=== PATIENT | female | born 1945 | race Caucasian/White ===

== ENCOUNTER 2017-07-02 12:08 | Emergency (ER) | payer MEDICARE, OTHER ==
[~2017-07-02] VITALS: Ht 157.5 cm; Wt 60.0 kg
[~2017-07-02 12:08] MED LIST: ATOR20TA38 PO; BENA10TA48 PO; CLOP75TA27 PO; CREON PO; ISOS30TA5 PO; METO-335 PO; RANI150C11 PO; RANO500T2 PO; RISE35TA3 PO; ZOLP5TAB PO
[2017-07-02 12:17] VITALS: Ht 157.5 cm; Wt 60.0 kg
[2017-07-02] MEDS ORDERED: HYDROCODONE/APAP (10/325) TAB PO ONE (13:30)
--- NOTE | 2017-07-02 14:09 | RADRPT ---
PROCEDURE: CT Lumbar Spine. CLINICAL INDICATION: Trauma. TECHNIQUE: Noncontrast CT of the lumbar spine was performed with multiplanar reformatted images gen erated from the axial acquired data. The administered radiation dose was CTDI vol = 24.93 mGy, DLP = 751.38 mGy-cm. One or more of the following dose reduction techniques were used: Automated exposur e control, Adjustment of the mA and/or kV according to patient size, or Use of iterative reconstruct ion technique. DICOM images are available. COMPARISON: There are no similar studies submitted for comparison. FINDINGS: There is normal lumbar lordosis. There is an acute / recent transverse fracture through the T11 vertebral body with moderate compress ion fracture. There is no significant retropulsion. There is normal alignment. There is no destructive osseous lesion. The discs are normal in height. T11-T12: There is a 2 mm central disk/osteophyte protrusion causing mild to moderate spinal canal s tenosis. There is moderate bilateral foraminal stenosis. T12-L1 : There is a 1 mm broad-based disc bulge without spinal canal or bilateral foraminal stenosis . L1-L2 : There is no disc herniation, spinal canal, or foraminal stenosis. L2-L3 : There is a 1 mm broad-based disc bulge and mild bilateral facet arthropathy without spinal c anal or bilateral foraminal stenosis. L3-L4 : There is a 2 mm broad-based disc bulge and mild bilateral facet arthropathy without spinal c anal or bilateral foraminal stenosis. L4-L5 : There is a 3 mm circumferential disc bulge and mild bilateral facet arthropathy ligamentum f lavum infolding causing mild to moderate spinal canal stenosis. There is no bilateral foraminal sten osis. L5-S1 : There is a 2 mm circumferential disc bulge without spinal canal stenosis. There is mild bila teral facet arthropathy with mild bilateral foraminal stenosis. The sacroiliac joints are intact. IMPRESSION: 1. Acute / recent T11 vertebral body compression fracture without retropulsion. 2. Mild multilevel degenerative changes as detailed above. Further findings as detailed above. RPTAT: HVF .Hubert Shahid MD, MD Date Time Electronically viewed and signed by .Hubert Shahid MD, on 07/02/2017 14:09 .F/
[2017-07-02] MEDS ORDERED: HYDR-902 PO (14:16)
--- NOTE | 2017-07-02 14:21 | ERD ---
ER Documentation Chief Complaint Chief Complaint BIB [facility] FOR BACK PAIN. S/P FALL YESTERDAY. HPI This is a 72-year-old female who is seen for a fall on an outside emergency room yesterday with a diagnosis of a fractured distal radius. When she got home she started complaining of back pain. The patient had apparently fallen to her buttocks but did not mention this pain to the ER doctor yesterday. Pain is located at the lower thoracic upper lumbar junction and is sharp and worse with movement. No numbness or weakness loss of bowel or bladder pain does not radiate she has no other complaints ROS All systems reviewed and are negative except as per history of present illness. Medications Home Meds Active Scripts Hydrocodone/Acetaminophen ([place] 10-325 Tablet) 1 Each Tablet, 1 TAB PO Q6H Y for PAIN, #20 TAB Prov:DOMINIC CHAVEZ DO 07/02/17 Reported Medications Lipase/Amylase/Protease* ([place] 10813*) 1 Cap Cap, 1 CAP PO SOMETIMES, CAP WITH MEALS 12/28/13 Zolpidem Tartrate* (Ambien*) 5 Mg Tablet, 5 MG PO HS Y for INSOMNIA, TAB 12/28/13 Risedronate* (Atelvia*) 35 Mg Tablet.dr, 35 MG PO EVERY Sunday12/28/13 Ranolazine* (Ranexa*) 500 Mg Tabsr, 500 MG PO BID, TAB 12/28/13 Atorvastatin Calcium* (Atorvastatin Calcium*) 20 Mg Tablet, 20 MG PO HS, TAB 12/28/13 Ranitidine Hcl (Ranitidine Hcl) 150 Mg Capsule, 150 MG PO HS, CAP 12/28/13 Metoprolol Succinate* (Toprol XL*) 25 Mg Tab.sr.24h, 25 MG PO QAM, TAB 12/28/13 Isosorbide Mononitrate* (Isosorbide Mononitrate*) 30 Mg Tab.er.24h, 30 MG PO QAM , TAB 12/28/13 Benazepril Hcl* (Benazepril Hcl*) 10 Mg Tablet, 10 MG PO DAILY, TAB 12/28/13 Clopidogrel Bisulfate (Clopidogrel) 75 Mg Tablet, 75 MG PO DAILY, TAB 12/28/13 Allergies Allergies: Coded Allergies: No Known Allergy (Unverified , 12/28/13) PMhx/Soc History of Surgery: Yes (2 stents in 2005) Anesthesia Reaction: No Hx Neurological Disorder: No Hx Respiratory Disorders: No Hx Cardiac Disorders: Yes (2 stents in 2005, htn, high cholesterol) Hx Psychiatric Problems: No Hx Miscellaneous Medical Probl: No Hx Alcohol Use: Yes (nightly) Hx Substance Use: No Hx Tobacco Use: No Smoking Status: Never smoker FmHx Family History: No coronary disease Physical Exam Vitals Vital Signs Date Time Temp Pulse Resp B/P Pulse Ox O2 Delivery O2 Flow Rate FiO2 07/02/17 12:36 80 167/95 96 Room Air 07/02/17 12:19 89 174/106 92 Room Air 07/02/17 12:17 97.5 87 16 176/106 99 Physical Exam Const: [Well-developed, well-nourished] Head: [Atraumatic, normocephalic] Eyes: [Normal Conjunctiva, PERRLA, EOMI, normal sclera, no nystagmus] ENT: [Normal External Ears, Nose and Mouth, moist mucus membranes.] Neck: [Full range of motion. No meningismus, no lymphadenopathy.] Resp: [Clear to auscultation bilaterally, no wheezing, rhonchi, rales] Cardio: [Regular rate and rhythm, no murmurs, S1 S2 present] Abd: [Soft, non tender x 4, non distended. Normal bowel sounds, no guarding or rebound, no pulsitile abdominal masses or bruits] Skin: [No petechiae or rashes, no ecchymosis , no maculopapular rash] Back: [Reproducible tenderness at the T12-L1 level] Ext: [No cyanosis, or edema, FROM x 4, normal inspection, neurovascularly intact x 4] Neur: [Awake and alert, STR 5/5 x 4, sensation intact x 4, no focal findings, cerebellum intact] Psych: [Normal Mood and Affect] Results 24 hrs Current Medications Medications (Trade) Dose Ordered Sig/Nona Route PRN Reason Start Time Stop Time Status Last Admin Dose Admin Acetaminophen/ Hydrocodone Bitart ([place] (10/325)) 1 tab ONCE ONCE PO 07/02/17 13:30 07/02/17 13:31 DC 07/02/17 13:30 Procedures/MDM PROCEDURE: CT Lumbar Spine. CLINICAL INDICATION: Trauma. TECHNIQUE: Noncontrast CT of the lumbar spine was performed with multiplanar reformatted images generated from the axial acquired data. The administered radiation dose was CTDI vol = 24.93 mGy, DLP = 751.38 mGy-cm. One or more of the following dose reduction techniques were used: Automated exposure control, Adjustment of the mA and/or kV according to patient size, or Use of iterative reconstruction technique. DICOM images are available. COMPARISON: There are no similar studies submitted for comparison. FINDINGS: There is normal lumbar lordosis. There is an acute / recent transverse fracture through the T11 vertebral body with moderate compression fracture. There is no significant retropulsion. There is normal alignment. There is no destructive osseous lesion. The discs are normal in height. T11-T12: There is a 2 mm central disk/osteophyte protrusion causing mild to moderate spinal canal stenosis. There is moderate bilateral foraminal stenosis. T12-L1 : There is a 1 mm broad-based disc bulge without spinal canal or bilateral foraminal stenosis. L1-L2 : There is no disc herniation, spinal canal, or foraminal stenosis. L2-L3 : There is a 1 mm broad-based disc bulge and mild bilateral facet arthropathy without spinal canal or bilateral foraminal stenosis. L3-L4 : There is a 2 mm broad-based disc bulge and mild bilateral facet arthropathy without spinal canal or bilateral foraminal stenosis. L4-L5 : There is a 3 mm circumferential disc bulge and mild bilateral facet arthropathy ligamentum flavum infolding causing mild to moderate spinal canal stenosis. There is no bilateral foraminal stenosis. L5-S1 : There is a 2 mm circumferential disc bulge without spinal canal stenosis. There is mild bilateral facet arthropathy with mild bilateral foraminal stenosis. The sacroiliac joints are intact. IMPRESSION: 1. Acute / recent T11 vertebral body compression fracture without retropulsion. 2. Mild multilevel degenerative changes as detailed above. Further findings as detailed above. RPTAT: HVF .Hubert Shahid MD, MD Date Time Electronically viewed and signed by .Hubert Shahid MD, MD on 07/02/2017 14:09 .F/ CC: DOMINIC CHAVEZ DO No evidence of retropulsion. Discussed home care with daughter and patient with orthopedics Departure Diagnosis: Primary Impression: Fracture of thoracic spine Encounter type: initial encounter Thoracic vertebra fracture level: T11 Fracture type: closed Fracture morphology: other fracture Qualified Code: S22.088A - Other closed fracture of eleventh thoracic vertebra, initial encounter Condition: Stable Patient Instructions: Back Fracture (Compression Fracture) DOMINIC CHAVEZ DO Jul 02, 2017 14:21
[2017-07-02 15:07] VITALS: BP 167/95; PULSE 80
== END 2017-07-02 15:15 | disposition home or self-care (01) ==
LOC: E/R 12:08
DX: S22.088A Other fracture of T11-T12 vertebra, initial encounter for closed fracture (principal); I10 Essential (primary) hypertension; W18.39XA Other fall on same level, initial encounter; Y92.9 Unspecified place or not applicable; Z98.61 Coronary angioplasty status
CPT/HCPCS: 72131